=== PATIENT | male | born 1970 | race Caucasian/White ===

== ENCOUNTER → 2020-06-15 13:42 | Outpatient (CLI) | payer BC, SELFPAY ==
--- NOTE | ~2020-06-15 | CT_ITS ---
EXAMINATION: CT abdomen pelvis w con EXAM DATE: 06/15/2020 14:23 INDICATION: Abdominal pain, gas bloating and nausea. Hypertension. TECHNIQUE: Spiral CT of the abdomen and pelvis was performed following intravenous injection of 100 m L Omnipaque 350. Axial, coronal and sagittal images were reviewed. The dose-length product (DLP) fo r this examination was 589.01 mGy-cm. The exposure was tailored according to patient size (auto mA e xposure control), and iterative reconstruction (ASIR) was used as additional dose reduction technique . There is no prior study for comparison. FINDINGS: Scattered small liver hypodensities up to 9 mm, likely cysts. The pancreas, adrenal glands, spleen are unremarkable. Gallbladder is unremarkable. No biliary obstruction. Portal and splenic veins are patent. Kidneys enhance symmetrically. There is no hydronephrosis. The prostate is unre markable. The bladder is unremarkable. There is no retroperitoneal or pelvic lymphadenopathy. The re are small bilateral inguinal fat-containing hernias. There are no findings to suggest appendicitis. The stomach and small bowel are unremarkable. There is expected amount of colonic stool. No free intraperitoneal gas. The heart is normal in size. T here are no pericardial or pleural effusions. The lung bases are unremarkable. There are no osteobl astic or osteolytic lesions identified. IMPRESSION: No acute intra-abdominal findings. Reviewed, dictated and finalized at location A.
[2020-06-15 14:09] LABS: Estimated Glomerular Filt Rate > 60
== END ==
PROVIDERS: PCP Internal Medicine; Visit Provider Internal Medicine
DX: R10.9 Unspecified abdominal pain (principal)
CPT/HCPCS: 74177; Q9967

== ENCOUNTER 2024-09-21 07:43 | Outpatient (CLI) | payer OTHER, SELFPAY ==
--- NOTE | ~2024-09-21 | US_ITS ---
EXAM: ABDOMEN ULTRASOUND HISTORY: RUQ Pain COMPARISON: Reference is made to a CT examination of the abdomen and pelvis dated 06/15/2020 FINDINGS: LIVER: Two subcentimeter anechoic avascular foci within the left lobe of the liver, consistent with simple c ysts, unchanged from CT examination performed in 2020. The remainder of the liver is otherwise unremarkable in echogenicity and size. The portal vein is patent, demonstrating hepatopedal flow. The contour of the liver surface is smooth. GALLBLADDER: No stones are identified within the gallbladder, which is otherwise unremarkable. No gallbladder wall thickening or pericholecystic fluid. BILE DUCTS: Common bile duct measures 3.8mm. PANCREAS: Limited evaluation of the pancreas secondary to overlying bowel gas IMPRESSION: Limited evaluation of the pancreas secondary to overlying bowel gas. Two subcentimeter simple cysts within the left lobe of the liver, unchanged from 2020. Examination is otherwise unremarkable, as detailed above. Reviewed, dictated and finalized at location A. IMPRESSION: Limited evaluation of the pancreas secondary to overlying bowel gas. Two subcentimeter simple cysts within the left lobe of the liver, unchanged fro 2020. Examination is otherwise unremarkable, as detailed above.
== END 2024-09-21 07:44 | disposition home or self-care (01) ==
LOC: MICIMG 07:45
PROVIDERS: PCP Internal Medicine; Visit Provider Internal Medicine
DX: K76.89 Other specified diseases of liver (principal); R10.11 Right upper quadrant pain
CPT/HCPCS: 76705